=== PATIENT | female | born 1995 | race African-American/Black ===

== ENCOUNTER → 2024-10-01 | Outpatient (CLI) | payer OTHER ==
--- NOTE | 2024-10-01 10:02 | MR ---
EXAMINATION TYPE: MR lumbar spine wo/w con DATE OF EXAM: 10/01/2024 COMPARISON: NONE HISTORY: Sciatica, low back pain into yosi lower extremities, Urinary incontinence TECHNIQUE: Multiplanar, multisequence images of the lumbar spine is performed without and with IV contrast, util izing 7.5 mL intravenous Gadobutrol FINDINGS: Sagittal images of the lumbar spine show vertebral body heights and alignment to appear sat isfactory. The intervertebral discs demonstrate normal heights and hydration. The conus medullaris i s normal in position and signal ending superior L2 level. The bone marrow signal intensity is within normal limits. No suspicious post contrast enhancement is seen. Axial images show mild facet arthropathy at L3-L4 and L4-L5 levels. There is no spinal canal stenosi s, neural foraminal narrowing, or evidence of nerve root compromise. Paraspinal muscle bulk is mainta ined. IMPRESSION: Mild facet arthropathy. No suspicious disc herniation or enhancement noted. [facility], , 10/01/2024 10:00 AM
== END | disposition home or self-care (01) ==
LOC: RADMRIMAIN 08:38
PROVIDERS: ATTEND Internal Medicine
DX: G56.93 Unspecified mononeuropathy of bilateral upper limbs (principal); M54.30 Sciatica, unspecified side; R32 Unspecified urinary incontinence; G43.909 Migraine, unspecified, not intractable, without status migrainosus; M47.816 Spondylosis without myelopathy or radiculopathy, lumbar region
CPT/HCPCS: 72158; A9585